=== PATIENT | male | born 1950 | race Caucasian/White ===

== ENCOUNTER 2022-06-01 11:59 | Inpatient (IN) | payer MEDICARE, MEDICAID ==
[~2022-06-01] VITALS: Ht 188 cm; Wt 120.7 kg
[2022-06-01 13:18] LABS: BASOPHILS % 0.8 % (0.0-2.0); EOSINOPHILS % 1.7 % (0.0-5.0); HEMOGLOBIN. 12.4 g/dL (14.0-18.0); LYMPHOCYTES % 10.6 % (20.0-50.0); MEAN CORPUSCULAR HEMOGLOBIN 30.4 pg (28.0-32.0); MEAN CORPUSCULAR VOLUME 92.9 fL (80.0-94.0); MEAN PLATELET VOLUME 8.5 fl (7.4-10.4); NEUTROPHILS % 76.9 % (40.0-76.0); PLATELET 216 x1000/uL (130-400); RED BLOOD CELL COUNT 4.09 mill/uL (4.7-6.1); RED CELL DISTRIBUTION WIDTH 15.7 % (11.6-14.6)
[2022-06-01 13:23] LABS: CHLORIDE 104 mEq/L (98-107)
[2022-06-01 13:34] LABS: ETHANOL BLOOD < 10 mg/dL; PHOSPHORUS 3.4 mg/dL (2.5-4.9)
[2022-06-01 13:41] LABS: INR 1.1; PARTIAL THROMBOPLASTIN TIME 26.9 sec (23.4-31.0)
[2022-06-01] MEDS ORDERED: ENOXAPARIN 100MG/ML SYR SUBCUT ONE (14:15)
[2022-06-01] MEDS ORDERED: ASPIRIN 325MG EC TABLET PO ONE (14:15)
[2022-06-01] MEDS ORDERED: FUROSEMIDE 40MG/4ML VIAL IV ONE (14:15)
[2022-06-01] MEDS ORDERED: NITROGLYCERIN OINT 1GM/INCH UDPKT TD ONE (14:15)
[2022-06-01 15:37] LABS: CLARITY URINE CLEAR (CLEAR); COLOR URINE YELLOW (YELLOW); KETONES URINE NEGATIVE (NEGATIVE); LEUKOCYTE ESTERASE URINE NEGATIVE (NEGATIVE); NITRITE URINE NEGATIVE (NEGATIVE); OCCULT BLOOD URINE NEGATIVE (NEGATIVE); PROTEIN URINE 2+ (NEGATIVE); SPECIFIC GRAVITY URINE 1.018 (1.005-1.030)
[2022-06-01 15:57] LABS: *AMPHETAMINES SCREEN URINE NEGATIVE (NEGATIVE); *BARBITURATES SCREEN URINE NEGATIVE (NEGATIVE); *BENZODIAZEPINES SCREEN URINE NEGATIVE (NEGATIVE); *COCAINE SCREEN URINE NEGATIVE (NEGATIVE); CANNABINOID URINE SCREEN NEGATIVE (NEGATIVE); METHADONE URINE SCREEN NEGATIVE (NEGATIVE); OPIATES URINE SCREEN NEGATIVE (NEGATIVE); PHENCYCLIDINE URINE SCREEN NEGATIVE (NEGATIVE)
[2022-06-01] MEDS ORDERED: IOHEXOL-350 100 ML BOTTLE ONE (20:55)
[2022-06-02] VITALS (10 sets, daily range): BP systolic 105–147; BP diastolic 43–81
[2022-06-02] MEDS ORDERED: DEXTROSE 50% WATER 50ML SYRINGE IV PRN (03:00)
[2022-06-02] MEDS: METOPROLOL TARTRATE 50MG TABLET PO SCH ×2 (03:50→21:49)
[2022-06-02] MEDS ORDERED: IPRATROPIUM/ALBUTEROL 0.5-3(2.5)MG/3ML NEB HHN PRN (05:15)
[2022-06-02] MEDS ORDERED: DIGOXIN 500MCG/2ML AMP IV NR (06:00)
[2022-06-02] MEDS: BLOOD SUGAR DIAGNOSTIC STRIP TEST SCH ×4 (07:48→21:00)
[2022-06-02] MEDS: INSULIN LISPRO 100 UNITS/ML SUBCUT SCH ×4 (07:48→21:00)
[2022-06-02] MEDS ORDERED: DIGOXIN 500MCG/2ML AMP IV SCH (08:00)
[2022-06-02] MEDS ORDERED: AMIODARONE HCL 150 MG in DEXT 5% WATER 100 ML IV ONE (08:30)
[2022-06-02] MEDS: SPIRONOLACTONE 25MG TABLET PO SCH (08:43)
[2022-06-02] MEDS: POTASSIUM CHLORIDE 20MEQ TABLET SR PO SCH ×2 (08:44→21:53)
[2022-06-02] MEDS: ENOXAPARIN 100MG/ML SYR SUBCUT SCH ×2 (08:45→21:51)
[2022-06-02] MEDS ORDERED: FUROSEMIDE 20MG/2ML VIAL IVP SCH (09:00)
[2022-06-02 10:10] LABS: BASOPHILS % 0.9 % (0.0-2.0); EOSINOPHILS % 2.3 % (0.0-5.0); HEMOGLOBIN. 12.6 g/dL (14.0-18.0); LYMPHOCYTES % 16.4 % (20.0-50.0); MEAN CORPUSCULAR HEMOGLOBIN 31.1 pg (28.0-32.0); MEAN CORPUSCULAR VOLUME 93.3 fL (80.0-94.0); MEAN PLATELET VOLUME 8.9 fl (7.4-10.4); MONOCYTES % 12.6 % (2.0-8.0); NEUTROPHILS % 67.8 % (40.0-76.0); PLATELET 199 x1000/uL (130-400); RED BLOOD CELL COUNT 4.07 mill/uL (4.7-6.1); RED CELL DISTRIBUTION WIDTH 15.7 % (11.6-14.6)
[2022-06-02 10:49] LABS: CHLORIDE 106 mEq/L (98-107)
[2022-06-02] MEDS: DIGOXIN 500MCG/2ML AMP IV SCH (18:40)
[2022-06-02] MEDS: FUROSEMIDE 40MG/4ML VIAL IVP SCH (21:00)
[2022-06-03] VITALS (11 sets, daily range): BP systolic 73–133; BP diastolic 44–85
[2022-06-03] MEDS: BLOOD SUGAR DIAGNOSTIC STRIP TEST SCH ×4 (05:54→21:00)
[2022-06-03] MEDS: FUROSEMIDE 40MG/4ML VIAL IVP SCH ×2 (05:58→17:45)
[2022-06-03] MEDS: INSULIN LISPRO 100 UNITS/ML SUBCUT SCH ×4 (08:00→21:00)
[2022-06-03] MEDS: SPIRONOLACTONE 25MG TABLET PO SCH (08:32)
[2022-06-03] MEDS: ENOXAPARIN 100MG/ML SYR SUBCUT SCH ×3 (08:35→22:23)
[2022-06-03] MEDS: POTASSIUM CHLORIDE 20MEQ TABLET SR PO SCH ×2 (08:35→22:23)
[2022-06-03] MEDS: METOPROLOL TARTRATE 50MG TABLET PO SCH ×2 (08:35→21:00)
[2022-06-03 14:10] LABS: BG BASE EXCESS 4.1 mmol/L (-2.0-2.0); BG CARBOXYHEMOGLOBIN 1.2 % (0.5-1.5); BG DEOXYHEMOGLOBIN 9.3 % (0.0-5.0); BG FRACTION INSPIRED OXYGEN 21; BG HCO3 ACT 28.2 mmol/L (22.0-26.0); BG METHEMOGLOBIN 0.3 % (0.0-1.5); BG OXYGEN SATURATION 90.6 % (92.0-98.5); BG OXYHEMOGLOBIN 89.2 % (94.0-97.0); BG PCO2 40.4 mmHg (35.0-45.0); BG PH 7.461 (7.350-7.450); BG PO2 58.3 mmHg (75.0-100.0); BG SAMPLE SITE RIGHT RADIAL; BG TOTAL HEMOGLOBIN 13.6 g/dL (12.0-18.0); BG VENT MODE ROOM AIR
[2022-06-03] MEDS: DIGOXIN 500MCG/2ML AMP IV SCH (17:48)
[2022-06-04] VITALS (7 sets, daily range): BP systolic 89–126; BP diastolic 47–67
[2022-06-04] MEDS: FUROSEMIDE 40MG/4ML VIAL IVP SCH (06:37)
[2022-06-04] MEDS: BLOOD SUGAR DIAGNOSTIC STRIP TEST SCH (07:46)
[2022-06-04] MEDS: INSULIN LISPRO 100 UNITS/ML SUBCUT SCH (08:00)
[2022-06-04] MEDS: SPIRONOLACTONE 25MG TABLET PO SCH (09:13)
[2022-06-04] MEDS: METOPROLOL TARTRATE 50MG TABLET PO SCH (09:13)
[2022-06-04] MEDS: POTASSIUM CHLORIDE 20MEQ TABLET SR PO SCH (09:13)
[2022-06-04] MEDS ORDERED: FUROSEMIDE 40MG TABLET PO SCH (17:00)
== END 2022-06-04 13:10 | disposition home health service (06) | DRG 190 ==
LOC: ER 11:59 → EDBEDREQ 18:00 → MICUSO 18:11 → EDBEDREQ 18:12 → 5EST 06-02 01:30
PROVIDERS: ADMIT Internal Medicine; ATTEND Internal Medicine
DX: I21.4 Non-ST elevation (NSTEMI) myocardial infarction (principal); I50.23 Acute on chronic systolic (congestive) heart failure; N17.9 Acute kidney failure, unspecified; I48.4 Atypical atrial flutter; E11.9 Type 2 diabetes mellitus without complications; D64.9 Anemia, unspecified; E66.9 Obesity, unspecified; E78.00 Pure hypercholesterolemia, unspecified; I11.0 Hypertensive heart disease with heart failure; R59.0 Localized enlarged lymph nodes; I25.10 Atherosclerotic heart disease of native coronary artery without angina pectoris; I44.7 Left bundle-branch block, unspecified; J43.9 Emphysema, unspecified; Z87.891 Personal history of nicotine dependence; Z95.1 Presence of aortocoronary bypass graft; Z68.34 Body mass index [BMI] 34.0-34.9, adult; Z83.3 Family history of diabetes mellitus; Z82.49 Family history of ischemic heart disease and other diseases of the circulatory system
CPT/HCPCS: 36415; 36600; 71045; 71275; 80048; 80053; 80305; 80320; 81003; 82375; 82805; 82962; 83605; 83735; 83880; 84100; 84484; 85025; 93005; 93306; 93970; 94618; 99291; J0282; J1160; J1650; J1815; J1940; J7060; Q9967; G0480